=== PATIENT | male | born 1980 | race Caucasian/White ===

== ENCOUNTER 2020-07-14 08:22 | Outpatient (CLI) | payer OTHER, SELFPAY ==
[2020-07-14 09:00] VITALS: BMI 36.9
--- NOTE | 2020-07-14 10:23 | ECG_ITS ---
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 Interpretive Statements NAME OF STUDY: EXERCISE SESTAMIBI STRESS TEST INDICATION: Chest Pressure Baseline blood pressure of 140/91 mm Hg, heart rate of 67 beats per minute and oxygen saturation of 98%. EKG showed normal sinus rhythm, normal axis with nonspecific T wave inversion. The patient exercised for 7 minutes 39 seconds on a standard Pavan protocol. Patient attained a maximum heart rate of 154 beats per minute(86% of the maximum predicted heart rate) with a blood pressure at the peak exercise of 238/78 mm Hg. The EKG at the peak exercise revealed sinus tachycardia with no significant ST-T wave changes. Patient did not have any chest pain or any significant arrhythmis with the exercise During the recovery phase, there were no new changes. Blood pressure at the end of the recovery phase was 154/94 mm Hg with a heart rate of 89 beats per minute and oxygen saturation 96%. CONCLUSION: 1. Normal EKG response to treadmill exercise. 2. No exercise-induced chest pain or cardiac arrhythmia. 3. Fair exercise tolerance, attained a maximum of 10.2 METs. Maximum VO2 of 35.7 mL/kg/min. 4. Baseline hypertension with normal response to exercise. 5. Perfusion scan will be documented separately. Electronically Signed On 07-14-2020 14:35:23 CDT by Daphne Michel M.D. [id number]
--- NOTE | 2020-07-14 10:23 | NMCV_ITS ---
NM benjamin perf SPECT r/s* [id number] Tayo Jeancarlos Age: 39 Gender: M : 1980 Exam Date: 07/14/2020 10:23 Ordering Phys: Rah Cr MD Technologist: SAMY Pitts Exam Location: [facility] Indications: CHEST PRESSURE STRESS TEST [facility] IMAGE PROTOCOL Rest/Stress 1 Exercise Day Radiopharmaceutical Dose (mCi) Administration Site Administered by Rest: Tc-99m 10.9 IV SAMY Pitts Sestamibi Stress:Tc-99m 32.4 IV SAMY [place] Sestamibi Rest: 14-Jul-2020 60 Discovery 630 Stress: 14-Jul-2020 15 Discovery 630 Radiopharmaceutical was injected at 85 % maximum heart rate. Images obtained in supine and prone position. SPECT RESULTS Technical Quality: Excellent Raw Data Analysis: Normal Image Corrections: No attenuation or motion correction applied Summed Stress Score: 5 Summed Rest Score: 10 Summed Difference Score: 2 PERFUSION FINDINGS Medium sized perfusion abnormality of mild severity of basal to mid inferior, basal to mid anterior sanon with improved tracer uptake in stress images. This is likely suggestive of attenuation artifact. FUNCTIONAL RESULTS (calculated via Gated SPECT) Stress Image LV EF (%): 65 Stress EDV (mL):111 TID: 0.96 Stress ESV (mL):39 FUNCTIONAL FINDINGS: The left ventricle is normal in size. Transient Ischemia Dilatation of 0.96. There is normal left ventricular systolic function. The left ventricular ejection fraction is normal with a value of 65%. There is normal left ventricular wall thickening with no regional wall motion abnormlities. Normal end diastolic and end systolic volumes. IMPRESSIONS 1. Myocardial perfusion imaging is normal. Attenuation artifact noted in anterior and inferior sanon. 2. The left ventricular ejection fraction is normal with a value of 65%. 3. There is normal left ventricular wall thickening with no regional wall motion abnormlities. 4. EKG portion of the study will be reported separately. 5. No coronary ischemia based on this study. Daphne Michel MD (Electronically Signed) Final Date: 16 Jul 2020 22:39 S
[2020-07-14 11:03] VITALS: BP 154/94; PULSE 90
== END 2020-07-14 08:23 | disposition home or self-care (01) ==
LOC: RAD 08:25 → CDL 10:23
PROVIDERS: PCP Family Medicine; Visit Provider Family Medicine
DX: R07.89 Other chest pain (principal)
CPT/HCPCS: 78452; 93017; A9500

== ENCOUNTER → 2023-09-26 11:39 | Outpatient (BNVA) | payer OTHER, SELFPAY | PROVIDERS: PCP Registered Nurse; Visit Provider Registered Nurse | DX: R53.83 Other fatigue (principal) | CPT/HCPCS: 80053; 84402; 84403; 85025 ==

== ENCOUNTER → 2023-10-03 08:48 | Outpatient (BNVA) | payer OTHER, SELFPAY | PROVIDERS: PCP Registered Nurse; Visit Provider Registered Nurse | DX: R73.9 Hyperglycemia, unspecified (principal) | CPT/HCPCS: 83036 ==

== ENCOUNTER → 2024-01-02 10:48 | Outpatient (BNVA) | payer OTHER, SELFPAY | PROVIDERS: PCP Registered Nurse; Visit Provider Registered Nurse | DX: E11.9 Type 2 diabetes mellitus without complications (principal) | CPT/HCPCS: 83036 ==

== ENCOUNTER → 2024-05-21 09:58 | Outpatient (BNVA) | payer OTHER, SELFPAY | PROVIDERS: PCP Registered Nurse; Visit Provider Registered Nurse | DX: E11.9 Type 2 diabetes mellitus without complications (principal) | CPT/HCPCS: 80053; 80061; 83036; 85025 ==

== ENCOUNTER → 2024-11-12 08:13 | Outpatient (BNVA) | payer OTHER, SELFPAY | PROVIDERS: PCP Registered Nurse; Visit Provider Registered Nurse | DX: E11.9 Type 2 diabetes mellitus without complications (principal) | CPT/HCPCS: 80048; 83036 ==